=== PATIENT | male | born 1955 | race Caucasian/White ===

== ENCOUNTER 2022-01-20 06:26 | Day surgery (SDC) | payer MEDICARE, OTHER ==
[~2022-01-20] VITALS: Ht 175.3 cm; Wt 86.9 kg
[~2022-01-20 06:26] MED LIST: FLAXSEED OIL1000 M1 PO; FLONASE ALLERG9.9 ML NAS; K-TAB ER20 MEQ PO; LEVOTHYROXINE50 MCG PO; MAGNESIUM400 M1 PO; VITAMIN D310 MC4 PO
--- NOTE | 2022-01-20 08:12 | NUR ---
01/20/22 0812 Rere Lima PT TO PACU ALERT AND AWAKE DENIES PAIN AND NAUSEA. RECEIVED ORDER FROM DR TRACY TO GIVE ANOTHER LITER OF IV FLUIDS FOR LOW BP. PT A SYMTOMATIC WITH LOW BP.
--- NOTE | 2022-01-20 11:03 | OR ---
[facility] [address], [place] [address] Signed DATE OF OPERATION: 01/20/2022 SURGEON: Esme Tracy MD PREOPERATIVE DIAGNOSES: 1. Father with colon cancer in the mid 70s. 2. Personal history of colonic polyps age 50. 3. Minimal diverticulosis. POSTOPERATIVE DIAGNOSES: 1. Mild to moderate pandiverticulosis. 2. Indurated prostate gland, left greater than right. PROCEDURE: Colonoscopy without biopsy. ESTIMATED BLOOD LOSS: None. INDICATIONS: Yefri is a 66-year-old gentleman asked to see me for followup colonoscopy. He came in 2005 at the age of 50 and had a small 4 mm adenomatous polyp removed. We know his father developed colon cancer in his mid 70s and from a colon cancer a couple years later. Yefri always does well with Versed and fentanyl. He came back in 2010 at the age of 55. He had minimal diverticulosis. He returned in 2015 at age 60 and again had minimal diverticulosis. He currently has no lower GI complaints. In the office, I had given him a pamphlet on colonoscopy. We reviewed the nature of the test. He understands there is risk including, but not limited to gas bloating, crampy abdominal pain, bleeding, perforation requiring surgery, and missed diagnosis. We also discussed the need for IV conscious sedation. He had expressed understanding and wished to proceed. PROCEDURE NOTE: Yefri was taken into our endoscopy suite and placed in the left lateral decubitus position. He was given IV sedation with 5 mg of Versed and 150 mcg of fentanyl to cover the case. A digital rectal exam was performed. No external hemorrhoids. Good sphincter tone. His prostate is moderately enlarged and indurated. The left is a little more so than the right, particularly inferiorly. The adult colonoscope had been introduced and advanced all around into the cecum under direct visualization of the camera. It took a little extra sedation and abdominal compression in order to get the Electronically Signed By: ESME TRACY MD 01/20/22 1103 PATIENT NAME: YEFRI SANCHEZ OPERATIVE REPORT DATE OF : 55 REPORT #: [id number] PHYSICIAN: ESME TRACY MD PCP: CLARISSA HANSON PAC REPORT IS CONFIDENTIAL AND NOT TO BE RELEASED WITHOUT AUTHORIZATION [facility] [address], [place] [address] Signed scope directly into the cecum itself. His prep was quite excellent. We could easily see the appendiceal orifice and the ileocecal valve. The scope was then slowly withdrawn. We took pictures throughout for photodocumentation. On this occasion, he had just a few diverticula in the right colon. He also has diverticula in the left sigmoid colon. They are moderate in size, few to moderate in number, and scattered about. No polyps on this occasion. The rectum was unremarkable. Upon retroflexion of the scope, he has very minimal if any internal hemorrhoid tissue. After this, the gas was suctioned out and the colonoscope removed. Yefri tolerated the procedure quite well. RECOMMENDATIONS: Yefri can return in 5 years for repeat colonoscopy due to his family and personal history. Esme Tracy MD ALB/MODL /[id number] cc: MD Clarissa Mack PA-C Copies: ESME TRACY MD, ERIKA PAC ~ Electronically Signed By: ESME TRACY MD 01/20/22 1103 PATIENT NAME: YEFRI SANCHEZ OPERATIVE REPORT DATE OF : 55 REPORT #: [id number] PHYSICIAN: ESME TRACY MD PCP: CLARISSA HANSON REPORT IS CONFIDENTIAL AND NOT TO BE RELEASED WITHOUT AUTHORIZATION
== END 2022-01-20 09:00 | disposition home or self-care (01) ==
LOC: DS 06:26 → OPS 06:26 → DS 09:00 → OPS 09:00
PROVIDERS: ATTEND Colon & Rectal Surgery
PROC: 0DJD8ZZ Inspection of Lower Intestinal Tract, Via Natural or Artificial Opening Endoscopic (ICD-10-PCS; principal; 2022-01-20 07:30)
DX: K57.30 Diverticulosis of large intestine without perforation or abscess without bleeding (principal); Z80.0 Family history of malignant neoplasm of digestive organs; Z86.010 Personal history of colon polyps; N42.89 Other specified disorders of prostate; E11.9 Type 2 diabetes mellitus without complications; E03.9 Hypothyroidism, unspecified
CPT/HCPCS: 99153; G0500; J2250; J3010